=== PATIENT | male | born 1995 | race Two or more races ===

== ENCOUNTER 2022-11-01 13:20 | Inpatient (IN) | payer OTHER ==
[~2022-11-01] VITALS: Ht 180.3 cm; Wt 91.0 kg
[2022-11-01] MEDS ORDERED: ONDANSETRON HCL 4 MG/2 ML VIAL IVP PRN (14:30)
[2022-11-01] MEDS ORDERED: DOXYCYCLINE HYCLATE 100 MG TABLET PO ONE ×2 (14:30→21:00)
[2022-11-01] MEDS ORDERED: ACETAMINOPHEN 325 MG TABLET PO PRN (14:30)
[2022-11-01] MEDS ORDERED: MAGNESIUM HYDROXIDE SUSPENSION 30 ML UDCUP PO PRN (14:30)
[2022-11-01 14:57] LABS: BASOPHILS % (AUTO) 0.6 % (0.0-2.0); EOSINOPHILS % (AUTO) 0.8 % (1.0-6.0); HEMATOCRIT 46.5 % (41-53); HEMOGLOBIN 15.6 g/dL (13.5-17.5); LYMPHOCYTES # (AUTO) 1.9 K/uL (1.0-4.8); MEAN CORPUSCULAR HEMOGLOBIN 32.1 pg (26.0-34.0); MEAN CORPUSCULAR HGB CONC 33.5 G/dL (31.0-37.0); MEAN CORPUSCULAR VOLUME 96 fL (80-100); MONOCYTES % (AUTO) 9.8 % (2.0-9.0); NEUTROPHILS # (AUTO) 6.7 K/uL (1.8-7.7); NEUTROPHILS % (AUTO) 68.8 % (40.0-70.0); PLATELET COUNT (AUTO) 233 K/uL (150-450); RED BLOOD CELL COUNT(AUTO) 4.85 MIL/uL (4.50-5.90); RED CELL DISTRIBUTION WIDTH 13.2 % (11.5-14.5)
[2022-11-01 15:01] LABS: COVID AG,FIA SOURCE NASOPHARYNGEAL
[2022-11-01 15:07] LABS: ANION GAP 7 mmol/L (8-16); CALCIUM, TOTAL 9.5 mg/dL (8.8-10.5); CARBON DIOXIDE 25 mmol/L (22-29); CHLORIDE 100 mmol/L (98-107); CREATININE 1.03 mg/dL (0.60-1.30); GLOMERULAR FILTR. RATE CALC > 60 mL/min (>60); GLUCOSE,RANDOM 112 mg/dL (70-110); POTASSIUM 3.7 mmol/L (3.5-5.1); SODIUM SERUM 132 mmol/L (136-145)
[2022-11-01 15:43] LABS: ALANINE AMINOTRANSFERASE 51 U/L (12-78); ALBUMIN 4.4 g/dL (3.4-5.0); ALKALINE PHOSPHATASE 68 U/L (46-116); ASPARTATE AMINOTRANSFERASE 113 U/L (15-37); BILIRUBIN,TOTAL 1.4 mg/dL (0.1-1.0); TOTAL PROTEIN, SERUM 8.8 g/dL (6.4-8.2)
[2022-11-01 15:44] LABS: CREATINE KINASE, TOTAL ONLY 3489 U/L (39-308)
[2022-11-01 17:13] LABS: APPEARANCE,URINE CLEAR (CLEAR); BILIRUBIN,URINE NEGATIVE (NEGATIVE); GLUCOSE, URINE (UA) NEGATIVE (NEGATIVE); LEUKOCYTE ESTERASE ,URINE NEGATIVE (NEGATIVE); NITRATE,URINE NEGATIVE (NEGATIVE); OCCULT BLOOD,URINE NEGATIVE (NEGATIVE); PROTEIN,URINE 30-70 mg/dL (NEGATIVE); SPECIFIC GRAVITIY, URINE 1.036 (1.003-1.030)
[2022-11-01 17:18] LABS: AMORPHOUS SEDIMENT,UR Few /LPF (None Seen); BACTERIA,URINE None Seen /HPF (None Seen); RBC,URINE 0-2 /HPF (0-2); SQUAMOUS EPITHELIAL CELL,UR Few /LPF (None Seen); WBC,URINE 0-2 /HPF (0-5)
[2022-11-01 17:49] LABS: AMPHET/METH SCREEN,URINE NEGATIVE (NEGATIVE); BARBITURATE SCREEN, URINE NEGATIVE (NEGATIVE); BENZODIAZEPINES SCREEN,URINE NEGATIVE (NEGATIVE); CANNABINOID SCREEN,URINE POSITIVE (NEGATIVE); COCAINE SCREEN,URINE NEGATIVE (NEGATIVE); METHADONE SCREEN, URINE NEGATIVE (NEGATIVE); OPIATE SCREEN,URINE NEGATIVE (NEGATIVE); PHENCYCLIDINE SCREEN,URINE NEGATIVE (NEGATIVE)
[2022-11-01 17:55] VITALS: BP 145/79; PULSE 83; RESP 20; TEMP 98.3
[2022-11-01] MEDS: SODIUM CHLORIDE 0.9% 1,000 ML IV SCH (18:19)
[2022-11-01 19:50] VITALS: BP 119/67; PULSE 75; RESP 20; TEMP 98.3
[2022-11-01] MEDS: CLOBETASOL 0.05% 15 GM OINTMENT TP SCH (20:21)
[2022-11-01] MEDS: DiphenhydrAMINE HCL 25 MG CAPSULE PO SCH ×2 (20:22→23:30)
[2022-11-01] MEDS ORDERED: DOXYCYCLINE HYCLATE 100 MG TABLET PO SCH (21:00)
[2022-11-02] MEDS: DiphenhydrAMINE HCL 25 MG CAPSULE PO SCH ×5 (04:21→21:23)
[2022-11-02] MEDS: SODIUM CHLORIDE 0.9% 1,000 ML IV SCH ×3 (04:21→23:45)
[2022-11-02 04:25] VITALS: BP 123/77; PULSE 53; RESP 18; TEMP 97.5
[2022-11-02 07:23] VITALS: BP 117/69; PULSE 53; RESP 20; TEMP 98
[2022-11-02 08:07] LABS: HIV 1-2 SCREEN 4TH GEN W/RFLX Non Reactive (Non Reactive)
[2022-11-02] MEDS: FAMOTIDINE 20 MG TABLET PO SCH (09:06)
[2022-11-02 15:31] VITALS: BP 117/56; PULSE 70; RESP 20; TEMP 98.4
[2022-11-02] MEDS: CLOBETASOL 0.05% 15 GM OINTMENT TP SCH ×2 (16:46→21:23)
[2022-11-02 20:04] VITALS: BP 128/84; PULSE 79; RESP 18; TEMP 98.8
[2022-11-03] MEDS: DiphenhydrAMINE HCL 25 MG CAPSULE PO SCH ×6 (00:44→20:27)
[2022-11-03 05:20] VITALS: BP_SYST 11; BP_SYST 119; BP_DIAS 58; PULSE 57; RESP 18; TEMP 97.9
[2022-11-03 07:06] LABS: HEPATITIS C AB (EIA) Non Reactive (Non Reactive)
[2022-11-03 08:00] VITALS: BP 115/53; PULSE 53; RESP 19; TEMP 98.3
[2022-11-03] MEDS: CLOBETASOL 0.05% 15 GM OINTMENT TP SCH ×2 (09:01→20:27)
[2022-11-03] MEDS: FAMOTIDINE 20 MG TABLET PO SCH (09:01)
[2022-11-03 13:07] LABS: Q FEVER AB PHASE I Negative (Neg:<1:16)
[2022-11-03] MEDS: SODIUM CHLORIDE 0.9% 1,000 ML IV SCH (16:52)
[2022-11-03 20:19] VITALS: BP 115/65; PULSE 55; RESP 18; TEMP 98.6
[2022-11-04] MEDS: DiphenhydrAMINE HCL 25 MG CAPSULE PO SCH ×5 (04:00→16:00)
[2022-11-04 05:45] VITALS: BP 114/71; PULSE 55; RESP 18; TEMP 97.8
[2022-11-04] MEDS: SODIUM CHLORIDE 0.9% 1,000 ML IV SCH ×2 (05:45→09:17)
[2022-11-04 08:07] VITALS: BP 102/55; PULSE 60; RESP 18; TEMP 97.9
[2022-11-04] MEDS: PredniSONE 20 MG TABLET PO SCH ×2 (09:00→09:18)
[2022-11-04] MEDS: FAMOTIDINE 20 MG TABLET PO SCH ×2 (09:00→09:17)
[2022-11-04] MEDS: CLOBETASOL 0.05% 15 GM OINTMENT TP SCH (09:18)
[2022-11-07 08:06] LABS: LYME TOTAL ANTIBODY CIA Negative (Negative)
== END 2022-11-04 17:11 | DRG 607 ==
LOC: EMS 13:23 → 6S 16:05
PROVIDERS: ADMIT Internal Medicine; ATTEND Internal Medicine
DX: L30.9 Dermatitis, unspecified (principal); M62.82 Rhabdomyolysis; Z20.822 Contact with and (suspected) exposure to COVID-19; F12.90 Cannabis use, unspecified, uncomplicated; Z78.9 Other specified health status; Z90.49 Acquired absence of other specified parts of digestive tract
CPT/HCPCS: 80053; 80307; 81001; 82550; 85025; 86618; 86638; 86765; 86780; 86787; 86803; 87340; 87389; 99285; J7030; 36415-L1; 36415-TC